=== PATIENT | male | born 1960 | race Caucasian/White ===

== ENCOUNTER 2024-02-11 08:06 | Day surgery (SDC) | payer OTHER ==
[~2024-02-11 08:06] MED LIST: Acetaminophen 1,000 MG in Premix Bag 1 BAG IV SCH; Albuterol 0.083% 2.5 MG/3 ML Neb Soln NEB PRN; HYDROmorphone 1 MG/ML Syringe IVPUSH PRN; Metoclopramide 10 MG/2 ML SDV IVPUSH PRN; Morphine 2 MG/ML SYRINGE IVPUSH PRN; Naloxone 0.4 MG/ML SDV IVPUSH PRN; Ondansetron 4 MG/2 ML SDV IVPUSH PRN; Phenylephrine HCl In 0.9% NaCl 1 MG/10 ML Syringe IVPUSH PRN; ceFAZolin 2 GM in Sodium Chloride 0.9% 50 ML IV ONE
[2024-02-11] MEDS: Lactated Ringers 1,000 ML IV SCH (08:42)
[2024-02-11] MEDS: Pregabalin 75 MG Cap PO SCH (09:04)
[2024-02-11] MEDS ORDERED: Lidocaine 1% 5 ML VIAL ONE (09:17)
[2024-02-11] MEDS ORDERED: Ondansetron 4 MG/2 ML SDV ONE (09:17)
[2024-02-11] MEDS ORDERED: Rocuronium Bromide 50 MG/5 ML Syringe ONE (09:17)
[2024-02-11] MEDS ORDERED: fentaNYL 100 MCG/2 ML SDV ONE (09:18)
[2024-02-11] MEDS ORDERED: Propofol 200 MG/20 ML SDV ONE (09:18)
[2024-02-11] MEDS ORDERED: Bupivacaine 0.5% 30 ML SDV ONE (10:21)
[2024-02-11] MEDS ORDERED: Morphine 10 MG/ML SDV ONE (10:36)
[2024-02-11] MEDS ORDERED: Ropivacaine 0.5% 5 MG/ML 30 ML SDV ONE (10:36)
[2024-02-11] MEDS ORDERED: ceFAZolin 2 GM Vial ONE (11:07)
[2024-02-11] MEDS ORDERED: ePHEDrine 50 MG/ML SDV ONE (11:53)
[2024-02-11] MEDS ORDERED: Ketorolac 30 MG/ML SDV ONE (12:04)
[2024-02-11] MEDS ORDERED: Sugammadex Sodium 200 MG/2 ML VIAL IV ONE (12:17)
[2024-02-11] MEDS: fentaNYL 50 MCG/ML SDV IVPUSH PRN (13:19)
== END 2024-02-11 15:00 | disposition home or self-care (01) ==
LOC: MW.SDS 08:06
PROVIDERS: ATTEND Surgery
DX: K43.2 Incisional hernia without obstruction or gangrene (principal); I10 Essential (primary) hypertension; E78.5 Hyperlipidemia, unspecified; F33.1 Major depressive disorder, recurrent, moderate; Z79.899 Other long term (current) drug therapy; Z79.82 Long term (current) use of aspirin; Z87.891 Personal history of nicotine dependence
CPT/HCPCS: 49593; 64488; A9270; J0131; J0665; J0690; J1885; J2272; J2405; J2704; J2795; J3010; J3490; J7120